=== PATIENT | male | born 1960 | race African-American/Black ===

== ENCOUNTER 2018-05-04 14:06 | Emergency (ER) | payer BC ==
[2018-05-04 14:14] VITALS: BP 128/66
[2018-05-04] MEDS ORDERED: oxyCODONE/APAP 10/325mg tablet PO ONE ×2 (14:35→15:35)
[2018-05-04] MEDS ORDERED: diazepam 5mg tablet PO ONE (14:35)
[2018-05-04] MEDS ORDERED: ketorolac trometh inj. 60 MG/2 ML VIAL IM ONE (14:35)
[2018-05-04] MEDS ORDERED: METH-360 PO (15:23)
[2018-05-04] MEDS ORDERED: OXYC-138 PO (15:23)
== END 2018-05-04 16:35 | disposition home or self-care (01) ==
LOC: ER 14:07
DX: M54.5 Low back pain (principal); Z88.6 Allergy status to analgesic agent; Z79.899 Other long term (current) drug therapy
CPT/HCPCS: 96372; 99284; J1885

== ENCOUNTER 2018-06-02 15:40 | Emergency (ER) | payer BC ==
[~2018-06-02] VITALS: Ht 182.9 cm; Wt 80.0 kg
[~2018-06-02 15:40] MED LIST: METH-360 PO; OXYC-138 PO
[2018-06-02 15:56] VITALS: BP 138/85
[2018-06-02] MEDS ORDERED: orphenadrine citrate 60mg/2ml inj. IM ONE (19:20)
[2018-06-02] MEDS ORDERED: ketorolac tromethamine 15mg/ml inj. IM ONE (19:20)
== END 2018-06-02 19:53 | disposition home or self-care (01) ==
LOC: ER 15:40
DX: G89.29 Other chronic pain (principal); M54.5 Low back pain; Z60.2 Problems related to living alone; Z88.6 Allergy status to analgesic agent; Z79.899 Other long term (current) drug therapy
CPT/HCPCS: 96372; 99284; J1885; J2360